=== PATIENT | female | born 1940 | race Caucasian/White ===

== ENCOUNTER → 2017-01-25 | Outpatient (CLI) | payer OTHER, MEDICARE ==
[~2017-01-25] MED LIST: ACET-1600 PO; ASPI-496 PO; B12 PO; CHOL5000 PO; CHOL500020 PO; COLE625T2 PO; DILT120C PO; DILT240C9 PO; DOCU100T6 PO; FIBER CON PO; FISH1CAP PO; FLAX1000 PO; LEVO100T5 PO; LEVO112T4 PO; LEVO75TA5 PO; LOSA100T6 PO; MULT-717 PO; OLME20TA PO; RED600CA2 PO; TRAM50TA2 PO
[2017-01-25 09:13] LABS: ASPARTATE AMINO TRANSFERASE 24 U/L (15-37); BLOOD UREA NITROGEN 19 mg/dL (7-18)
== END | disposition home or self-care (01) ==
LOC: STAR 07:44
PROVIDERS: ATTEND Orthopaedic Surgery
DX: M17.12 Unilateral primary osteoarthritis, left knee (principal); R79.89 Other specified abnormal findings of blood chemistry
CPT/HCPCS: 36415; 80053; 81003; 85025; 87081

== ENCOUNTER → 2017-01-26 | Outpatient (CLI) | payer MEDICARE, OTHER ==
[~2017-01-26] MED LIST changes: +REGADENOSON 0.4 MG/5 ML SYRINGE ONE
== END | disposition home or self-care (01) ==
LOC: CFH 07:15
PROVIDERS: ATTEND Internal Medicine Cardiovascular Disease
DX: I10 Essential (primary) hypertension (principal); R07.9 Chest pain, unspecified
CPT/HCPCS: 78452; 93017; A9502; J2785

== ENCOUNTER 2017-02-08 06:31 | Inpatient (IN) | payer OTHER, MEDICARE ==
[2017-01-25 08:57] VITALS: BP 146/77
[~2017-02-08] VITALS: Ht 165.1 cm; Wt 81.8 kg
[~2017-02-08 06:31] MED LIST changes: -REGADENOSON 0.4 MG/5 ML SYRINGE ONE
[2017-02-08] MEDS ORDERED: LIDOCAINE 1%, 2ML ONE (06:54)
[2017-02-08] MEDS ORDERED: SCOPOLAMINE PATCH, 1.5MG PATCH.TD72 TD ONE ×2 (06:54→08:00)
[2017-02-08] MEDS ORDERED: VANCOMYCIN 1,500 MG in SODIUM CHLORIDE 0.9% 250 ML IV ONE (07:00)
[2017-02-08] MEDS ORDERED: VANCOMYCIN PER PHARMACY MC PRN (07:00)
[2017-02-08] MEDS ORDERED: BUPIVACAINE/PF 0.5% ONE (07:21)
[2017-02-08] MEDS ORDERED: LACTATED RINGERS 1,000 ML IV SCH (07:21)
[2017-02-08] MEDS ORDERED: GABA600T2 PO (07:26)
[2017-02-08] MEDS ORDERED: CELE200C PO (07:26)
[2017-02-08] MEDS ORDERED: LIDOCAINE 1%, 2ML SQ PRN (07:30)
[2017-02-08] MEDS ORDERED: FENTANYL PF 250 MCG/5ML ONE (08:34)
[2017-02-08] MEDS ORDERED: ROPIvacaine/PF 0.2%, 20 ML ONE (08:54)
[2017-02-08] MEDS ORDERED: KETOROLAC 60 MG/2 ML ONE (08:54)
[2017-02-08] MEDS ORDERED: TRANEXAMIC ACID 100 MG/ML, 10ML ONE (08:55)
[2017-02-08] MEDS ORDERED: EPINEPHRINE 1 MG/ML, 1ML ONE (08:55)
[2017-02-08] MEDS ORDERED: SODIUM CHLORIDE 0.9% 50 ML ONE (08:55)
[2017-02-08] MEDS ORDERED: DEXAMETHASONE 4 MG/ML, 1ML ONE (09:14)
[2017-02-08] MEDS ORDERED: ONDANSETRON 2MG/ML, 2ML ONE (09:14)
[2017-02-08] MEDS ORDERED: CEFAZOLIN 1,000 MG ONE (09:14)
[2017-02-08] MEDS ORDERED: PROPOFOL 10 MG/ML, 20ML ONE (09:14)
[2017-02-08] MEDS: D5%-0.45NACL+KCL 20MEQ 1,000 ML IV SCH ×2 (11:36→22:28)
[2017-02-08] MEDS ORDERED: ACETAMINOPHEN 650 MG/20.3 ML UDC ONE (11:40)
[2017-02-08] MEDS: HYDROmorphone 1 MG/ML, 1ML IV PRN ×2 (11:40→11:51)
[2017-02-08] MEDS ORDERED: HYDROmorphone 1 MG/ML, 1ML ONE (11:41)
[2017-02-08] MEDS ORDERED: FENTANYL PF 100 MCG/2ML ONE (11:41)
[2017-02-08] MEDS ORDERED: OXYcodone 5 MG/5 ML ORAL.SOL UDC ONE (11:41)
[2017-02-08] MEDS: FENTANYL PF 100 MCG/2ML IV PRN ×2 (11:55→12:17)
[2017-02-08] MEDS ORDERED: MEPERIDINE/PF 25MG/0.5ML IVPush PRN (12:00)
[2017-02-08] MEDS ORDERED: ONDANSETRON 4 MG TABLET PO PRN (12:00)
[2017-02-08] MEDS ORDERED: ACETAMINOPHEN 325 MG TABLET PO PRN (12:00)
[2017-02-08] MEDS ORDERED: SENNA/DOCUSATE TABLET PO PRN (12:00)
[2017-02-08] MEDS ORDERED: BISACODYL 10 MG SUPP PR PRN (12:00)
[2017-02-08] MEDS ORDERED: ONDANSETRON 2MG/ML, 2ML IVPush PRN (12:00)
[2017-02-08] MEDS ORDERED: LABETALOL 5MG/ML, 20ML IV PRN (12:00)
[2017-02-08] MEDS ORDERED: OXYcodone 5 MG/5 ML ORAL.SOL UDC PO PRN (12:00)
[2017-02-08] MEDS ORDERED: hydrALAzine 20 MG/ML, 1ML IV PRN (12:00)
[2017-02-08] MEDS ORDERED: MIDAZOLAM 1 MG/ML, 2ML IV PRN (12:00)
[2017-02-08] MEDS ORDERED: PROMETHAZINE 25 MG/ML, 1ML IV PRN (12:00)
[2017-02-08] MEDS ORDERED: MAGNESIUM HYDROXIDE 8%, 30ML UDC PO PRN (12:00)
[2017-02-08] MEDS ORDERED: ALUMINUM/MAG/SIMETHICONE 30 ML UDC PO PRN (12:00)
[2017-02-08 13:40] VITALS: BP 130/62
[2017-02-08] MEDS: CEFAZOLIN PMX 1GM/50ML 50 ML IVPB SCH (18:16)
[2017-02-08 20:38] VITALS: BP 140/64
[2017-02-08] MEDS: COLESTIPOL 1 GM TABLET PO SCH (21:00)
[2017-02-08] MEDS: DOCUSATE 100 MG CAPSULE PO SCH ×2 (21:00→21:40)
[2017-02-08] MEDS: OXYcodone IR 5MG TABLET PO PRN (22:28)
[2017-02-08 23:43] VITALS: BP 112/56
[2017-02-09] MEDS: CEFAZOLIN PMX 1GM/50ML 50 ML IVPB SCH (01:25)
[2017-02-09] MEDS: OXYcodone IR 5MG TABLET PO PRN ×5 (03:13→18:23)
[2017-02-09 03:47] VITALS: BP 121/59
[2017-02-09] MEDS: LEVOTHYROXINE 112 MCG TABLET PO SCH (06:24)
[2017-02-09 07:02] VITALS: BP 126/60
[2017-02-09] MEDS: D5%-0.45NACL+KCL 20MEQ 1,000 ML IV SCH ×2 (07:36→17:29)
[2017-02-09] MEDS: DILTIAZEM 240 MG CAP.ER.24H PO SCH (08:51)
[2017-02-09] MEDS: DOCUSATE 100 MG CAPSULE PO SCH ×3 (08:51→20:13)
[2017-02-09] MEDS: CHOLECALCIFEROL 1,000 UNIT TABLET PO SCH (08:52)
[2017-02-09] MEDS: COLESTIPOL 1 GM TABLET PO SCH ×2 (08:52→20:12)
[2017-02-09] MEDS: LOSARTAN 50MG TABLET PO SCH (08:54)
[2017-02-09] MEDS: HYDROmorphone 1 MG/ML, 1ML IV PRN ×2 (11:25→20:19)
[2017-02-09 12:16] VITALS: BP 115/58
[2017-02-09] MEDS: ASPIRIN 325 MG TABLET EC PO SCH (18:23)
[2017-02-09 19:37] VITALS: BP 118/50
[2017-02-10] MEDS: OXYcodone IR 5MG TABLET PO PRN ×3 (00:52→11:19)
[2017-02-10 02:08] VITALS: BP 106/56
[2017-02-10] MEDS: D5%-0.45NACL+KCL 20MEQ 1,000 ML IV SCH (03:24)
[2017-02-10] MEDS: LEVOTHYROXINE 112 MCG TABLET PO SCH (06:22)
[2017-02-10] MEDS: ASPIRIN 325 MG TABLET EC PO SCH (06:22)
[2017-02-10 07:28] VITALS: BP 116/50
[2017-02-10] MEDS: COLESTIPOL 1 GM TABLET PO SCH (09:25)
[2017-02-10] MEDS: CHOLECALCIFEROL 1,000 UNIT TABLET PO SCH (09:25)
[2017-02-10] MEDS: LOSARTAN 50MG TABLET PO SCH (09:25)
[2017-02-10] MEDS: DOCUSATE 100 MG CAPSULE PO SCH (09:25)
[2017-02-10] MEDS: DILTIAZEM 240 MG CAP.ER.24H PO SCH (09:26)
[2017-02-10] MEDS ORDERED: PNEUMOCOCCAL 23 VACCINE IM-VACC ONE (10:00)
[2017-02-10] MEDS ORDERED: ASPI325T80 PO (10:52)
[2017-02-10] MEDS ORDERED: OXYC5CAP4 PO (10:52)
[2017-02-10 10:58] VITALS: BP 128/46
== END 2017-02-10 11:35 | disposition home or self-care (01) | DRG 470 ==
LOC: ORIP 06:31 → 4NOR 13:24
PROVIDERS: ADMIT Orthopaedic Surgery; ATTEND Orthopaedic Surgery
PROC: 3E0T3BZ Introduction of Anesthetic Agent into Peripheral Nerves and Plexi, Percutaneous Approach (ICD-10-PCS; 2017-02-08)
PROC: 0SRD0J9 Replacement of Left Knee Joint with Synthetic Substitute, Cemented, Open Approach (ICD-10-PCS; principal; 2017-02-08 09:00)
DX: M17.12 Unilateral primary osteoarthritis, left knee (principal); I10 Essential (primary) hypertension; E78.00 Pure hypercholesterolemia, unspecified; E03.9 Hypothyroidism, unspecified; Z88.2 Allergy status to sulfonamides; Z88.6 Allergy status to analgesic agent; Z79.899 Other long term (current) drug therapy; Z23 Encounter for immunization
CPT/HCPCS: 36415; 85014; 90732; C1713; J0171; J0690; J1100; J1170; J1885; J2405; J2704; J2795; J3010; J3370; J3490; Q0162; C1776; J3480; J7050; J7120

== ENCOUNTER 2017-03-20 08:53 | Inpatient (IN) | payer OTHER, MEDICARE ==
[~2017-03-20] VITALS: Ht 162.6 cm; Wt 83.4 kg
[~2017-03-20 08:53] MED LIST changes: +ASPI325T80 PO; +CELE200C PO; +COLE625T12 PO; -COLE625T2 PO; +GABA600T2 PO; -OLME20TA PO; +OLME20TA19 PO; +OXYC5CAP2 PO
[2017-03-20] MEDS ORDERED: VANCOMYCIN PER PHARMACY MC STA (09:13)
[2017-03-20] MEDS ORDERED: SCOPOLAMINE PATCH, 1.5MG PATCH.TD72 TD ONE ×2 (09:18→10:00)
[2017-03-20] MEDS ORDERED: LIDOCAINE 1%, 2ML ONE (09:18)
[2017-03-20 09:28] VITALS: BP 129/67
[2017-03-20] MEDS ORDERED: LACTATED RINGERS 1,000 ML IV SCH (09:40)
[2017-03-20] MEDS ORDERED: VANCOMYCIN 1,500 MG in SODIUM CHLORIDE 0.9% 250 ML IV ONE (10:00)
[2017-03-20] MEDS ORDERED: LIDOCAINE 1%, 2ML SQ PRN (10:00)
[2017-03-20] MEDS ORDERED: PLEASE ENTER HEIGHT AND WEIGHT MC SCH (10:00)
[2017-03-20] MEDS ORDERED: MIDAZOLAM 1 MG/ML, 2ML ONE (10:39)
[2017-03-20] MEDS ORDERED: FENTANYL PF 100 MCG/2ML ONE ×2 (10:39→14:11)
[2017-03-20] MEDS ORDERED: VANCOMYCIN 1,000 MG ONE ×2 (11:04→12:50)
[2017-03-20] MEDS ORDERED: KETOROLAC 60 MG/2 ML ONE (11:34)
[2017-03-20] MEDS ORDERED: ROPIvacaine/PF 0.2%, 20 ML ONE (11:35)
[2017-03-20] MEDS ORDERED: TRANEXAMIC ACID 100 MG/ML, 10ML ONE ×2 (11:35→11:57)
[2017-03-20] MEDS ORDERED: EPINEPHRINE 1 MG/ML, 1ML ONE (11:35)
[2017-03-20] MEDS ORDERED: ROCURONIUM 10 MG/ML ONE (11:51)
[2017-03-20] MEDS ORDERED: CEFAZOLIN 1,000 MG ONE (11:51)
[2017-03-20] MEDS ORDERED: PROPOFOL 10 MG/ML, 20ML ONE (11:51)
[2017-03-20] MEDS ORDERED: ONDANSETRON 2MG/ML, 2ML ONE (11:51)
[2017-03-20] MEDS ORDERED: DEXAMETHASONE 4 MG/ML, 1ML ONE (11:51)
[2017-03-20] MEDS ORDERED: SUCCINYLCHOLINE 20 MG/ML, 10ML ONE (11:51)
[2017-03-20] MEDS ORDERED: LABETALOL 5MG/ML, 20ML IV PRN ×2 (12:30)
[2017-03-20] MEDS ORDERED: HYDROmorphone 1 MG/ML, 1ML IV PRN (12:30)
[2017-03-20] MEDS ORDERED: FENTANYL PF 100 MCG/2ML IV PRN (12:30)
[2017-03-20] MEDS ORDERED: ACETAMINOPHEN 325 MG TABLET PO PRN ×2 (12:30)
[2017-03-20] MEDS ORDERED: METOCLOPRAMIDE 5 MG/ML, 2ML IV PRN ×2 (12:30)
[2017-03-20] MEDS ORDERED: hydrALAzine 20 MG/ML, 1ML IV PRN ×2 (12:30)
[2017-03-20] MEDS ORDERED: OXYcodone 5 MG/5 ML ORAL.SOL UDC PO PRN ×2 (12:30)
[2017-03-20] MEDS ORDERED: ONDANSETRON 2MG/ML, 2ML IVPush PRN ×2 (12:30)
[2017-03-20] MEDS ORDERED: ONDANSETRON 2MG/ML, 2ML IV PRN (14:00)
[2017-03-20] MEDS ORDERED: SENNA/DOCUSATE TABLET PO PRN (14:00)
[2017-03-20] MEDS ORDERED: MAGNESIUM HYDROXIDE 8%, 30ML UDC PO PRN (14:00)
[2017-03-20] MEDS ORDERED: ALUMINUM/MAG/SIMETHICONE 30 ML UDC PO PRN (14:00)
[2017-03-20] MEDS ORDERED: VANCOMYCIN PER PHARMACY MC PRN (14:00)
[2017-03-20] MEDS ORDERED: ACETAMINOPHEN 650 MG/20.3 ML UDC PO PRN (14:00)
[2017-03-20] MEDS ORDERED: BISACODYL 10 MG SUPP PR PRN (14:00)
[2017-03-20] MEDS ORDERED: OXYcodone 5 MG/5 ML ORAL.SOL UDC ONE (14:02)
[2017-03-20] MEDS ORDERED: HYDROmorphone 1 MG/ML, 1ML ONE (14:11)
[2017-03-20] MEDS: FENTANYL PF 100 MCG/2ML IV PRN ×2 (14:15→14:30)
[2017-03-20] MEDS: HYDROmorphone 1 MG/ML, 1ML IV PRN ×2 (14:18→14:27)
[2017-03-20] MEDS ORDERED: PHARMACOKINETIC CONSULTATION MC ONE (16:00)
[2017-03-20] MEDS ORDERED: PHARMACOKINETIC MONITORING MC PRN (16:00)
[2017-03-20] MEDS: D5%-0.45NACL+KCL 20MEQ 1,000 ML IV SCH (17:38)
[2017-03-20] MEDS: HYDROcodone/APAP 5/325 TABLET PO PRN ×2 (17:38→23:41)
[2017-03-20 19:45] VITALS: BP 120/58
[2017-03-20] MEDS: DOCUSATE 100 MG CAPSULE PO SCH (20:07)
[2017-03-20] MEDS: CEFAZOLIN PMX 1GM/50ML 50 ML IVPB SCH (20:08)
[2017-03-20] MEDS: morphine SULFATE 10 MG/ML, 1ML IV PRN (20:25)
[2017-03-20 23:45] VITALS: BP 126/57
[2017-03-21] MEDS: morphine SULFATE 10 MG/ML, 1ML IV PRN (03:21)
[2017-03-21 03:47] VITALS: BP 104/55
[2017-03-21] MEDS: D5%-0.45NACL+KCL 20MEQ 1,000 ML IV SCH ×3 (05:00→21:00)
[2017-03-21 05:18] LABS: HEMATOCRIT 31.7 % (34.6-47.8); HEMOGLOBIN 10.7 g/dL (11.7-16.4)
[2017-03-21 05:31] LABS: BLOOD UREA NITROGEN 16 mg/dL (7-18)
[2017-03-21] MEDS: CEFAZOLIN PMX 1GM/50ML 50 ML IVPB SCH (05:41)
[2017-03-21] MEDS: LEVOTHYROXINE 112 MCG TABLET PO SCH (05:42)
[2017-03-21] MEDS: HYDROcodone/APAP 5/325 TABLET PO PRN ×4 (05:42→21:12)
[2017-03-21] MEDS: ASPIRIN 325 MG TABLET EC PO SCH ×2 (05:42→18:11)
[2017-03-21 08:41] VITALS: BP 107/63
[2017-03-21] MEDS: DOCUSATE 100 MG CAPSULE PO SCH ×2 (09:21→21:12)
[2017-03-21] MEDS: DILTIAZEM 120 MG CAP.ER.12H PO SCH (09:21)
[2017-03-21] MEDS: MULTIVITAMINS/MINERALS TABLET PO SCH (09:22)
[2017-03-21] MEDS: LOSARTAN 50MG TABLET PO SCH (09:22)
[2017-03-21] MEDS: VANCOMYCIN 1,500 MG in SODIUM CHLORIDE 0.9% 250 ML IV SCH (09:22)
[2017-03-21 14:02] VITALS: BP 112/70
[2017-03-21] MEDS ORDERED: ASPIRIN 325 MG TABLET EC PO SCH (18:00)
[2017-03-21 21:11] VITALS: BP 91/50
[2017-03-22 03:49] VITALS: BP 114/57
[2017-03-22] MEDS: D5%-0.45NACL+KCL 20MEQ 1,000 ML IV SCH (05:00)
[2017-03-22] MEDS: ASPIRIN 325 MG TABLET EC PO SCH (06:07)
[2017-03-22] MEDS: LEVOTHYROXINE 112 MCG TABLET PO SCH (06:07)
[2017-03-22 07:38] VITALS: BP 111/64
[2017-03-22] MEDS: DOCUSATE 100 MG CAPSULE PO SCH (08:17)
[2017-03-22] MEDS: MULTIVITAMINS/MINERALS TABLET PO SCH (08:17)
[2017-03-22] MEDS: DILTIAZEM 120 MG CAP.ER.12H PO SCH (08:17)
[2017-03-22] MEDS: LOSARTAN 50MG TABLET PO SCH (08:18)
[2017-03-22] MEDS ORDERED: HYDR-3240 PO (10:12)
[2017-03-22] MEDS ORDERED: DOCU-131 PO (10:14)
[2017-03-22] MEDS ORDERED: ASPI-650 PO (10:14)
[2017-03-22] MEDS: VANCOMYCIN 1,500 MG in SODIUM CHLORIDE 0.9% 250 ML IV SCH (10:19)
[2017-03-22 11:21] VITALS: BP 115/63
== END 2017-03-22 13:15 | disposition home or self-care (01) | DRG 468 ==
LOC: ORIP 08:53 → 4NOR 14:59 → DCLOUNGE 03-22 12:50
PROVIDERS: ADMIT Orthopaedic Surgery; ATTEND Orthopaedic Surgery
PROC: 0SRD0J9 Replacement of Left Knee Joint with Synthetic Substitute, Cemented, Open Approach (ICD-10-PCS; 2017-03-20)
PROC: 0SPD0JZ Removal of Synthetic Substitute from Left Knee Joint, Open Approach (ICD-10-PCS; principal; 2017-03-20 11:00)
DX: T84.093A Other mechanical complication of internal left knee prosthesis, initial encounter (principal); I10 Essential (primary) hypertension; Y79.2 Prosthetic and other implants, materials and accessory orthopedic devices associated with adverse incidents; E03.9 Hypothyroidism, unspecified
CPT/HCPCS: 36415; 80048; 82040; 85025; 87015; 87070; 87075; 87102; 87116; 87205; 87206; 93005; C1713; J0171; J0690; J1100; J1170; J1885; J2250; J2405; J2704; J2795; J3010; J3370; J3490; C1776; J0330; J2270; J3480; J7050; J7120

== ENCOUNTER → 2018-03-25 | Outpatient (CLI) | payer OTHER, MEDICARE ==
[~2018-03-25] MED LIST changes: +ASPI-650 PO; +DILT-8 PO; -DILT120C PO; +DOCU-131 PO; +HYDR-3240 PO; -LOSA100T6 PO; +LOSA100T7 PO; +OLME20TA17 PO; -OLME20TA19 PO
== END | disposition home or self-care (01) ==
LOC: CFH 08:29
PROVIDERS: ATTEND Physician Assistant
DX: I51.7 Cardiomegaly (principal); I35.8 Other nonrheumatic aortic valve disorders; Z88.2 Allergy status to sulfonamides; Z87.891 Personal history of nicotine dependence
CPT/HCPCS: 93306

== ENCOUNTER 2018-08-26 12:23 | Outpatient (CLI) | payer OTHER, MEDICARE ==
[~2018-08-26 12:23] MED LIST changes: -GABA600T2 PO; +GABA600T7 PO; +LOSA100T14 PO; -LOSA100T7 PO
[2018-08-26] MEDS ORDERED: TRIAMCINOLONE ACETONIDE 40 MG/ML, 1ML ONE ×2 (13:01→13:26)
[2018-08-26] MEDS ORDERED: BUPIVACAINE/PF 0.5% ONE (13:01)
[2018-08-26] MEDS ORDERED: LIDOCAINE-MPF 1%, 5ML ONE ×2 (13:01→13:19)
[2018-08-26] MEDS ORDERED: SODIUM BICARBONATE 4.0%, 5ML ONE (13:01)
[2018-08-26] MEDS ORDERED: ROPivacaine/PF 0.2%, 10 ML ONE (13:01)
== END 2018-08-26 23:59 | disposition home or self-care (01) ==
LOC: RAD 12:23
PROVIDERS: ATTEND Nurse Practitioner
DX: Z01.818 Encounter for other preprocedural examination (principal); M19.072 Primary osteoarthritis, left ankle and foot
CPT/HCPCS: 20605; 77002; J3301; J3490; J2795

== ENCOUNTER → 2021-03-30 | Outpatient (CLI) | payer OTHER, MEDICARE ==
[~2021-03-30] MED LIST changes: +ASPI-1026 PO; -ASPI-650 PO; +DILT-88 PO; -DILT240C9 PO; +HYDR-2214 PO; -HYDR-3240 PO
== END | disposition home or self-care (01) ==
LOC: RAD 15:07
PROVIDERS: ATTEND Nurse Practitioner Family
DX: M79.89 Other specified soft tissue disorders (principal)
CPT/HCPCS: 93970

== ENCOUNTER 2021-03-31 10:22 | Emergency (ER) | payer OTHER, MEDICARE ==
[~2021-03-31] VITALS: Ht 165.1 cm; Wt 80.2 kg
--- NOTE | 2021-03-31 10:55 | NUR ---
DR GERMAN BEDSIDE
--- NOTE | 2021-03-31 10:55 | NUR ---
PT C/O SWELLING AND REDNESS TO LOWER EXT. PT STATES IT STARTED IN THE LAST WEEK AND SHE NOTICED AFTER WORK THAT HER LOWER LEGS WERE SWOLLEN AND RED. PT DENIES CP OR SOB . PT ALSO EXPERIENCING RIGHT MID BACK PAIN. PT DENIES DSURIA.
[2021-03-31 11:34] LABS: BASOPHILS % (AUTO) 1 % (0-1); EOSINOPHILS % (AUTO) 2 % (1-7); LYMPHOCYTES % (AUTO) 24 % (22-44); MEAN CORPUSCULAR HEMOGLOBIN 32.3 pg (27.0-34.8); MEAN PLATELET VOLUME 10.6 fL (7.4-10.4); MONOCYTES % (AUTO) 10 % (2-9); NEUTROPHILS % (AUTO) 62 % (42-75); PLATELET COUNT 220 x10^3/uL (130-400); RED BLOOD COUNT 3.87 x10^6/uL (3.82-5.3); RED CELL DISTRIBUTION WIDTH 12.7 % (9.6-15.2)
[2021-03-31 11:37] LABS: ALBUMIN 3.6 g/dL (3.4-5.0); ANION GAP 9 mmol/L (5-15); CALCIUM 8.9 mg/dL (8.5-10.1); CHLORIDE 102 mmol/L (98-107)
[2021-03-31 11:42] LABS: ALKALINE PHOSPHATASE 110 U/L (45-117); BILIRUBIN,TOTAL 0.6 mg/dL (0.2-1.0); CREATININE 0.84 mg/dL (0.55-1.02); TOTAL PROTEIN 7.6 g/dL (6.4-8.2); TROPONIN I < 0.015 ng/mL (0.000-0.045)
[2021-03-31 11:55] LABS: ALANINE AMINOTRANSFERASE 8 U/L (12-78)
[2021-03-31 12:05] LABS: MICROSCOPIC NOT IND
[2021-03-31 12:53] VITALS: BP 142/54
--- NOTE | 2021-03-31 12:53 | NUR ---
PT REC'VD DISCHARGE INSTRUCTIONS AND PAPERWORK. PT HAD NO FURTHER QUESTIONS. PT AMBULATED TO DC AREA WITH DAUGHTER, STEADY GAIT.
== END 2021-03-31 13:23 | disposition home or self-care (01) ==
LOC: ED 12:45
DX: I87.2 Venous insufficiency (chronic) (peripheral) (principal); M54.6 Pain in thoracic spine; R94.31 Abnormal electrocardiogram [ECG] [EKG]; I10 Essential (primary) hypertension; E03.9 Hypothyroidism, unspecified
CPT/HCPCS: 36415; 71045; 80053; 81003; 83880; 84484; 85025; 93005; 99285